=== PATIENT | male | born 1950 | race Two or more races ===

== ENCOUNTER 2017-08-23 09:30 | Inpatient (IN) | payer OTHER ==
[~2017-08-23] VITALS: Ht 167.6 cm; Wt 81.6 kg
[2017-08-23] MEDS ORDERED: FORTAMET1000 MG PO (13:17)
[2017-08-23] MEDS ORDERED: SIMVASTATIN10 MG PO (13:17)
[2017-08-23] MEDS ORDERED: LORATADINE10 M2 PO (13:17)
[2017-08-23] MEDS ORDERED: LOSARTAN-HCTZ1 EAC1 PO (13:17)
[2017-08-23] MEDS ORDERED: PANTOPRAZOLE SO40 MG PO (13:18)
[2017-08-23] MEDS ORDERED: CARDURA XL4 MG PO (13:18)
== END 2017-09-01 12:04 | disposition home or self-care (01) | DRG 708 ==
LOC: O/R 08-30 05:30 → SURH 08-30 05:30 → RECOVERY 08-30 09:30 → SURH 08-30 15:06
PROVIDERS: Urology
PROC: 07TC0ZZ Resection of Pelvis Lymphatic, Open Approach (ICD-10-PCS; 2017-08-30)
PROC: 0VT00ZZ Resection of Prostate, Open Approach (ICD-10-PCS; principal; 2017-08-30 07:00)
DX: C61 Malignant neoplasm of prostate (principal); I10 Essential (primary) hypertension